=== PATIENT | female | born 1950 | race Caucasian/White ===

== ENCOUNTER 2018-07-10 09:59 | Outpatient (CLI) | payer BC ==
[2018-07-10] MEDS ORDERED: SIMV20TA3 PO (10:32)
[2018-07-10] MEDS ORDERED: LEVO75TA5 PO (10:32)
[2018-07-10] MEDS ORDERED: LISI-170 PO (10:32)
[2018-07-10] MEDS ORDERED: TURMERIC (10:45)
[2018-07-10 11:02] LABS: ALANINE AMINOTRANSFERASE 42 U/L (12-78); ALBUMIN 4.2 g/dL (3.4-5.0); ANION GAP 6 mmol/L (5-15); CALCIUM 9.6 mg/dL (8.5-10.1); CHLORIDE 104 mmol/L (98-107); CREATININE 0.87 mg/dL (0.55-1.02)
[2018-07-10 11:04] LABS: ALKALINE PHOSPHATASE 56 U/L (45-117); BILIRUBIN,TOTAL 0.3 mg/dL (0.2-1.0); TOTAL PROTEIN 8.1 g/dL (6.4-8.2)
== END 2018-07-10 23:59 | disposition home or self-care (01) ==
LOC: STAR 09:59
PROVIDERS: ATTEND Surgery
DX: Z01.812 Encounter for preprocedural laboratory examination (principal); C50.311 Malignant neoplasm of lower-inner quadrant of right female breast
CPT/HCPCS: 36415; 80053; 93005

== ENCOUNTER → 2018-07-10 | Outpatient (CLI) | payer BC ==
[~2018-07-10] MED LIST: LEVO75TA5 PO; LIDOCAINE 1%, 20ML ONE; LIDOCAINE 1%-EPI 1:100K, 20ML ONE; LISI-170 PO; SIMV20TA3 PO; SODIUM BICARBONATE 4.0%, 5ML ONE; TURMERIC
== END | disposition home or self-care (01) ==
LOC: CFH 07:03
PROVIDERS: ATTEND Surgery
DX: C50.311 Malignant neoplasm of lower-inner quadrant of right female breast (principal)
CPT/HCPCS: 19285; 77065; J3490

== ENCOUNTER 2018-07-14 11:45 | Day surgery (SDC) | payer BC ==
[~2018-07-14] VITALS: Ht 160 cm; Wt 72.9 kg
[~2018-07-14 11:45] MED LIST changes: +CEFAZOLIN 1,000 MG ONE; +GLYCOPYRROLATE 0.2MG/1ML, 5ML ONE; -LIDOCAINE 1%, 20ML ONE; -LIDOCAINE 1%-EPI 1:100K, 20ML ONE; +NEOSTIGMINE 1 MG/ML, 10ML ONE; +PROPOFOL 10 MG/ML, 20ML ONE; +ROCURONIUM 10MG/ML,5ML ONE; -SODIUM BICARBONATE 4.0%, 5ML ONE
[2018-07-14 12:41] VITALS: BP 149/91
[2018-07-14] MEDS ORDERED: LACTATED RINGERS 1,000 ML IV SCH (12:49)
[2018-07-14] MEDS ORDERED: GABAPENTIN 300 MG CAPSULE PO ONE (13:00)
[2018-07-14] MEDS ORDERED: ACETAMINOPHEN 500 MG TABLET PO ONE (13:00)
[2018-07-14] MEDS ORDERED: SCOPOLAMINE PATCH, 1.5MG PATCH.TD72 TD ONE (13:00)
[2018-07-14] MEDS ORDERED: ONDANSETRON ODT 8 MG PO ONE (13:00)
[2018-07-14] MEDS ORDERED: MIDAZOLAM 1 MG/ML, 2ML ONE (13:27)
[2018-07-14] MEDS ORDERED: FENTANYL PF 250 MCG/5ML ONE (13:27)
[2018-07-14] MEDS ORDERED: ISOSULFAN BLUE 10 MG/ML, 5ML IV ONE (13:53)
[2018-07-14] MEDS ORDERED: BUPIVACAINE/PF-EPI 0.5% 1:200K ONE (13:53)
[2018-07-14] MEDS ORDERED: LABETALOL 5MG/ML, 20ML IV PRN (14:30)
[2018-07-14] MEDS ORDERED: MEPERIDINE/PF 25MG/0.5ML IVPush PRN (14:30)
[2018-07-14] MEDS ORDERED: LORazepam 2 MG/ML, 1ML IVPush PRN (14:30)
[2018-07-14] MEDS ORDERED: PROMETHAZINE 25 MG/ML, 1ML IV PRN (14:30)
[2018-07-14] MEDS ORDERED: FENTANYL PF 100 MCG/2ML IV PRN (14:30)
[2018-07-14] MEDS ORDERED: OXYcodone 5 MG/5 ML ORAL.SOL UDC PO PRN (14:30)
[2018-07-14] MEDS ORDERED: HYDROmorphone 2 MG/ML, 1ML IVPush PRN (14:30)
[2018-07-14] MEDS ORDERED: hydrALAzine 20 MG/ML, 1ML IV PRN (14:30)
[2018-07-14] MEDS ORDERED: MEPERIDINE/PF 25MG/ML,1ML ONE (17:52)
[2018-07-14] MEDS ORDERED: OXYcodone 5 MG/5 ML ORAL.SOL UDC ONE (17:52)
== END 2018-07-14 20:50 | disposition home or self-care (01) ==
LOC: OUT 11:45 → 4NOR 19:00 → OUT 20:50
PROVIDERS: ATTEND Surgery
DX: C50.811 Malignant neoplasm of overlapping sites of right female breast (principal); C77.3 Secondary and unspecified malignant neoplasm of axilla and upper limb lymph nodes; N64.89 Other specified disorders of breast; N65.1 Disproportion of reconstructed breast; R59.1 Generalized enlarged lymph nodes; I10 Essential (primary) hypertension; E78.00 Pure hypercholesterolemia, unspecified; E03.9 Hypothyroidism, unspecified; Z98.890 Other specified postprocedural states; Z87.891 Personal history of nicotine dependence; Z72.89 Other problems related to lifestyle
CPT/HCPCS: 19301; 19318; 19366; 38525; 38792; 76098; 88305; 88307; 88329; 88333; A9541; C1729; J0690; J2175; J2250; J2704; J2710; J3010; J3490; J7120; Q0162; G0378